=== PATIENT | female | born 2000 | race Caucasian/White ===

== ENCOUNTER → 2022-08-12 | Outpatient (CLI) | payer BC ==
[~2022-08-12] MED LIST: ALBU3IS; ALBU90OI; CLAR250SU PO; CODGUAEL PO; MONT5TCH; PRED15SY PO
[2022-08-16 18:10] LABS: CHLAMYDIA TRACHOMATIS, NAA Negative (Negative)
== END | disposition home or self-care (01) ==
LOC: LAB 10:15 → RAD SHORT 10:15
PROVIDERS: Advanced Practice Midwife
DX: Z01.419 Encounter for gynecological examination (general) (routine) without abnormal findings (principal); Z11.3 Encounter for screening for infections with a predominantly sexual mode of transmission
CPT/HCPCS: 87491; 87591; G0145

== ENCOUNTER → 2023-01-21 | Outpatient (CLI) | payer BC | LOC: LAB 17:38 → LAB SHORT 17:38 | DX: S81.801A Unspecified open wound, right lower leg, initial encounter (principal) | CPT/HCPCS: 87070; 87075; 87077; 87186; 87205 ==

== ENCOUNTER → 2024-03-28 | Outpatient (CLI) | payer BC | END | disposition home or self-care (01) | LOC: LAB 12:55 → LAB SHORT 12:55 | DX: N39.0 Urinary tract infection, site not specified (principal) | CPT/HCPCS: 87086 ==